=== PATIENT | male | born 1955 | race Caucasian/White ===

== ENCOUNTER 2017-10-02 01:32 | Emergency (ER) | payer OTHER ==
[~2017-10-02] VITALS: Ht 180.3 cm; Wt 72.4 kg
[2017-10-02 01:33] VITALS: TEMP 37.1; Ht 180.3 cm; Wt 72.4 kg
[2017-10-02 01:39] VITALS: O2SAT 96
[2017-10-02 02:01] LABS: HEMATOCRIT 41.2 % (42-52); HEMOGLOBIN 14.3 g/dL (14.0-18.0); MEAN CELL VOLUME 88.8 fL (80-100); MEAN CORPUSCULAR HEMOGLOBIN 30.8 pg (25-34); MEAN CORPUSCULAR HGB CONC 34.7 g/dl (32-36); MEAN PLATELET VOLUME 8.6 fL (7.4-10.4); PLATELET COUNT 230 K/uL (130-400); RED CELL DISTRIBUTION WIDTH CV 13.3 % (11.5-14.5); RED CELL DISTRIBUTION WIDTH SD 43.1 fL (36.4-46.3); WHITE BLOOD COUNT 7.91 K/uL (4.8-10.8)
[2017-10-02] MEDS ORDERED: ASPIRIN 324 MG CHEW PO STA (02:02)
[2017-10-02 02:09] LABS: ALBUMIN 3.7 gm/dl (3.4-5.0); CALCIUM 8.3 mg/dl (8.5-10.1); CREATININE 1.22 mg/dl (0.60-1.40); POTASSIUM 3.8 mmol/L (3.5-5.1)
[2017-10-02 02:10] LABS: INR 0.9 (0.9-1.1); PTT PATIENT 26.8 SECONDS (21.0-31.0)
[2017-10-02 02:13] LABS: CKMB 1.1 ng/ml (0.5-3.6); TOTAL PROTEIN 7.4 gm/dl (6.4-8.2)
[2017-10-02] MEDS ORDERED: BENAZEPRIL PO (02:53)
[2017-10-02] MEDS ORDERED: AMLODIPINE PO (02:53)
[2017-10-02] MEDS ORDERED: ATOR-24 PO (02:55)
[2017-10-02 04:03] VITALS: BP 116/72; PULSE 70; O2SAT 98
--- NOTE | 2017-10-02 04:16 | EMERGENCY ROOM VISIT NOTE ---
History First contact with patient: 01:51 Chief Complaint: CHEST PAIN Stated Complaint: CHEST PAIN Nursing Triage Summary: Pt reports he woke up Wednesday morning 0800 with left sided chest heaviness. Pt thought it was a pulled muscle. had dull ache all day. traveled via plane from [place] to [place] wednesday. pt went to bed around 2330, pt woke up with worsening pain and unable to get comfortable. hx of cardiac cath with no stents and no blockages found in 2013. chemical stress test also negative. History of Present Illness The patient is a 62 year old male who presents to the Emergency Room with complaints of left-sided chest pain. The patient reports that he has had a pain in the left side of his chest since he woke up yesterday morning. He states the pain does radiate slightly into the back. He reports it is a mild, achy pain and rates his discomfort a 3/10. He was able to fall asleep tonight but woke up due to the pain. He states that the pain improves when he does standing or sitting and is worse when he is lying down flat. He has been able to do normal activity and states that exertion does not increase his pain. There is no radiation into the jaw or arm. He denies any cardiac history. He did have stress testing and cardiac catheterization done 4 years ago which was all negative. He reports a history of hypertension and hyperlipidemia. He does report a family history of heart disease in his father, who also had end- stage renal disease at a young age. The patient is in town for his son-in-law' s graduation and flew here from [place] 2 days ago. He does not smoke. He denies any history or family history of blood clots. Review of Systems A complete 10 point review of systems was reviewed with the patient with pertinent positives and negatives as per history of present illness. All else were negative. Past Medical/Surgical History Medical Problems: (1) Hyperlipidemia (2) Hypertension Social History Smoking Status: Former Smoker Marital Status: Housing Status: lives with family (from [place]) Current/Historical Medications Scheduled Atorvastatin (Lipitor), 40 MG PO DAILY [Amlodip/Benazep], 10-40 MG PO DAILY Physical Exam Vital Signs Date Time Temp Pulse Resp B/P (MAP) Pulse Ox O2 Delivery O2 Flow Rate FiO2 10/02/17 04:03 70 20 116/72 98 Room Air 10/02/17 02:30 74 20 118/86 98 Room Air 10/02/17 01:45 78 10/02/17 01:43 95 Room Air 10/02/17 01:39 78 22 147/89 96 Room Air 10/02/17 01:39 96 Room Air 10/02/17 01:33 37.1 86 20 144/95 96 Room Air Physical Exam VITALS: Vitals are noted on the nurse's note and reviewed by myself. Vital signs stable. GENERAL: This is a 62-year-old male, in no acute distress, nondiaphoretic, well- developed well-nourished. SKIN: The skin was without rashes. EARS: External auditory canals clear, tympanic membranes pearly orozco without erythema or effusion bilaterally. EYES: Pupils equal round and reactive to light and accommodation. MOUTH: Mucous membranes moist. Tonsils are not enlarged. Pharynx without erythema or exudate. NECK: Supple without nuchal rigidity. No lymphadenopathy. HEART: Regular rate and rhythm without murmurs gallops or rubs. LUNGS: Clear to auscultation bilaterally without wheezes, rales or rhonchi. No retractions or accessory muscle use. MUSCULOSKELETAL: No reproducible tenderness to palpation of the chest wall. Full range of motion throughout. NEURO: Patient was alert and oriented to person place and time. Medical Decision & Procedures ER Provider Diagnostic Interpretation: CHEST 1 VIEW: No acute cardiopulmonary findings. Laboratory Results 10/02/17 01:40 10/02/17 01:40 Test 10/02/17 01:40 10/02/17 03:50 Red Blood Count 4.64 M/uL (4.7-6.1) Mean Corpuscular Volume 88.8 fL (80-100) Mean Corpuscular Hemoglobin 30.8 pg (25-34) Mean Corpuscular Hemoglobin Concent 34.7 g/dl (32-36) RDW Standard Deviation 43.1 fL (36.4-46.3) RDW Coefficient of Variation 13.3 % (11.5-14.5) Mean Platelet Volume 8.6 fL (7.4-10.4) Prothrombin Time 9.7 SECONDS (9.0-12.0) Prothromb Time International Ratio 0.9 (0.9-1.1) Activated Partial Thromboplast Time 26.8 SECONDS (21.0-31.0) Partial Thromboplastin Ratio 1.0 D-Dimer 260 ug/L FEU (0-500) Anion Gap 7.0 mmol/L (3-11) Est Creatinine Clear Calc Drug Dose 65.9 ml/min Estimated GFR () 74.2 Estimated GFR (Non- 64.0 BUN/Creatinine Ratio 12.0 (10-20) Calcium Level 8.3 mg/dl (8.5-10.1) Total Bilirubin 0.5 mg/dl (0.2-1) Aspartate Amino Transf (AST/SGOT) 20 U/L (15-37) Alanine Aminotransferase (ALT/SGPT) 31 U/L (12-78) Alkaline Phosphatase 92 U/L (45-117) Total Creatine Kinase 104 U/L (39-308) Creatine Kinase MB 1.1 ng/ml (0.5-3.6) Creatine Kinase MB Ratio 1.1 (0-3.0) Total Protein 7.4 gm/dl (6.4-8.2) Albumin 3.7 gm/dl (3.4-5.0) Globulin 3.7 gm/dl (2.5-4.0) Albumin/Globulin Ratio 1.0 (0.9-2) Bedside Troponin I < 0.030 ng/ml (0-0.045) Medications Administered Medications (Trade) Dose Ordered Sig/Latoya Route Start Time Stop Time Status Last Admin Dose Admin Aspirin (Aspirin Chew) 324 mg NOW STAT PO 10/02/17 02:02 10/02/17 02:03 DC 10/02/17 02:10 324 MG ECG Per My Interpretation Indication: chest pain Rate (beats per minute): 63 Rhythm: normal sinus Findings: no ectopy, other (early repolarization) Comparison ECG Date: no prior available ED Course The patient was evaluated as above. Labs were drawn and IV access was obtained. Patient was medicated with 324 mg ASA. Patient was reevaluated and findings were discussed. Repeat EKG and troponin were obtained at this time. Discharge instructions were reviewed with the patient. The patient verbalized understanding of my assessment and treatment plan and was discharged home in good condition. Medical Decision Differential diagnosis includes acute coronary syndrome, pulmonary embolism, pneumothorax, pericarditis, myocarditis, endocarditis, anxiety, musculoskeletal pain, GERD, costochondritis, pneumonia, among others. The patient is a 62-year-old male who presents today complaining of left-sided chest pain. Chest pain has been ongoing since yesterday morning. Labs revealed no leukocytosis, anemia or concerning electrolyte abnormalities. Troponin 2 were negative. EKG was interpreted by myself and shows findings suggestive of early repolarization. Patient's HEART score calculated to be 3, making the patient low risk for major adverse cardiac events. Additionally, patient has had previous workup including stress test and cardiac catheterization 4 years ago which were negative. I did recommend that the patient follow-up very closely with his PCP and certified hyperbaric technologist when he returns home. The patient's case was reviewed with Dr. Kiser, ED attending physician, who agreed with my assessment and treatment plan. Based on the patient's presentation and work up, I feel the patient is stable for outpatient treatment. The patient was educated to return to the emergency department for any worsening of their current condition or new/concerning symptoms. He will follow up with his PCP and certified hyperbaric technologist. Medication Reconcilliation Current Medication List: was personally reviewed by me Blood Pressure Screening Patient's blood pressure: Normal blood pressure Impression Primary Impression: Left sided chest pain Departure Information Dispostion Home / Self-Care Condition GOOD Referrals No Doctor, Assigned (PCP) Patient Instructions My [facility] Additional Instructions You have been treated in the Emergency Department for your Chest Pain. Laboratory results and Imaging Studies have ruled out any emergent cardiac or pulmonary cause of your chest pain. For pain control, you can use the following [id number] medicines (if >12 yo): - Regular strength (325mg/tab) Tylenol (acetaminophen) 2 tabs every 4-6 hours as needed. Do not exceed 12 tablets in a 24 hour period. Avoid taking more than 4 grams (4000 mg) of Tylenol per day. This includes any other sources of acetaminophen you may take on a regular basis. - Regular strength (200 mg/tab) Advil (ibuprofen) 3 tabs every 6-8 hours as needed. Do not exceed a dose of 3200 mg per day. Follow-up with your PCP and certified hyperbaric technologist when you return home. Return to the Emergency Department if your current symptoms worsen despite treatment course outlined above, or if you develop any of the following symptoms : worsening chest pain, associated jaw/arm pain, nausea, dizziness, shortness of breath, bloody cough, or fainting.
--- NOTE | 2017-10-02 06:25 | DIAGNOSTIC IMAGING REPORT ---
CHEST ONE VIEW PORTABLE HISTORY: 62 years-old Male chest pain acute atypical chest pain COMPARISON: None available TECHNIQUE: Portable AP view the chest FINDINGS: Cardiomediastinal and hilar silhouettes are within normal limits. No pneumothorax, pleural effusion, focal airspace consolidation or overt pulmonary edema. Linear subsegmental left basilar atelectasis. Bones of the chest appear grossly intact. IMPRESSION: No acute process. The above report was generated using voice recognition software. It may contain grammatical, syntax or spelling errors. Electronically signed by: Nishant Medellin M.D. 10/02/2017 6:24 AM Dictated Date/Time: 10/02/2017 6:23 AM
== END 2017-10-02 04:22 | disposition home or self-care (01) ==
LOC: C.EDB 01:34
DX: R07.9 Chest pain, unspecified (principal); I10 Essential (primary) hypertension; E78.5 Hyperlipidemia, unspecified; Z84.1 Family history of disorders of kidney and ureter; Z87.891 Personal history of nicotine dependence; Z79.899 Other long term (current) drug therapy